=== PATIENT | male | born 1955 | race Caucasian/White ===

== ENCOUNTER → 2017-01-11 | Outpatient (CLI) | payer BC | LOC: HEART CORB 09:15 | DX: R94.31 Abnormal electrocardiogram [ECG] [EKG] (principal); I10 Essential (primary) hypertension | CPT/HCPCS: 93306 ==

== ENCOUNTER → 2020-10-13 | Outpatient (CLI) | payer BC ==
[~2020-10-13] MED LIST: CLONIDINE HCL0.2 MG PO; COREG6.25 MG PO; IBU800 MG PO; LOSARTAN-HCTZ1 EACH PO; NORVASC10 MG PO; VITAMIN C500 M4 PO; VITAMIN D31250 MCG PO
== END ==
LOC: KOH-I 09:03
DX: M25.572 Pain in left ankle and joints of left foot (principal); S82.402A Unspecified fracture of shaft of left fibula, initial encounter for closed fracture; S92.112A Displaced fracture of neck of left talus, initial encounter for closed fracture; S92.132A Displaced fracture of posterior process of left talus, initial encounter for closed fracture; L84 Corns and callosities; X58.XXXA Exposure to other specified factors, initial encounter
CPT/HCPCS: 73610

== ENCOUNTER → 2020-10-22 | Outpatient (CLI) | payer BC | LOC: KOH-I 08:00 → EMI 10-23 08:00 | DX: S92.112A Displaced fracture of neck of left talus, initial encounter for closed fracture (principal); S92.132A Displaced fracture of posterior process of left talus, initial encounter for closed fracture; S82.832A Other fracture of upper and lower end of left fibula, initial encounter for closed fracture; M19.072 Primary osteoarthritis, left ankle and foot; X58.XXXA Exposure to other specified factors, initial encounter | CPT/HCPCS: 73700 ==

== ENCOUNTER → 2020-11-06 | Day surgery (SDC) | payer BC ==
[~2020-11-06] VITALS: Ht 190.5 cm; Wt 108.9 kg
[2020-11-06 07:12] LABS: HEMOGLOBIN 14.7 gm/dl (14.0-17.5); RED BLOOD COUNT 4.38 M/UL (4.20-5.50); WHITE BLOOD COUNT 5.1 K/UL (4.5-11.0)
== END | disposition home or self-care (01) ==
LOC: OR 06:29
PROVIDERS: Podiatrist Foot & Ankle Surgery
DX: S92.112A Displaced fracture of neck of left talus, initial encounter for closed fracture (principal); S92.122A Displaced fracture of body of left talus, initial encounter for closed fracture; S92.145A Nondisplaced dome fracture of left talus, initial encounter for closed fracture; S92.192A Other fracture of left talus, initial encounter for closed fracture; S82.832A Other fracture of upper and lower end of left fibula, initial encounter for closed fracture; S92.002A Unspecified fracture of left calcaneus, initial encounter for closed fracture; I10 Essential (primary) hypertension; Z88.0 Allergy status to penicillin; Z79.899 Other long term (current) drug therapy; X58.XXXA Exposure to other specified factors, initial encounter
CPT/HCPCS: 73630; 76000; 80048; 85027; C1713; J1885; J2001; J2405; J2704; J2795; J3010; J3370; J7120; Q4133

== ENCOUNTER → 2020-11-23 | Outpatient (CLI) | payer BC | LOC: KOH-I 15:53 | DX: S82.832D Other fracture of upper and lower end of left fibula, subsequent encounter for closed fracture with routine healing (principal); S92.102D Unspecified fracture of left talus, subsequent encounter for fracture with routine healing; Z98.1 Arthrodesis status; X58.XXXD Exposure to other specified factors, subsequent encounter | CPT/HCPCS: 73610; 73630 ==

== ENCOUNTER → 2020-12-10 | Outpatient (CLI) | payer BC | LOC: KOH-I 16:18 | DX: S92.102D Unspecified fracture of left talus, subsequent encounter for fracture with routine healing (principal); X58.XXXD Exposure to other specified factors, subsequent encounter | CPT/HCPCS: 73630 ==

== ENCOUNTER → 2020-12-21 | Outpatient (CLI) | payer BC | LOC: KOH-I 10:42 | DX: S92.102D Unspecified fracture of left talus, subsequent encounter for fracture with routine healing (principal); Z98.890 Other specified postprocedural states; X58.XXXD Exposure to other specified factors, subsequent encounter | CPT/HCPCS: 73630 ==

== ENCOUNTER → 2021-01-18 | Outpatient (CLI) | payer BC | LOC: KOH-I 08:32 | DX: M25.475 Effusion, left foot (principal) | CPT/HCPCS: 73630 ==

== ENCOUNTER → 2021-01-26 | Outpatient (CLI) | payer BC | LOC: KOH-I 10:26 | DX: S92.102D Unspecified fracture of left talus, subsequent encounter for fracture with routine healing (principal); S92.112D Displaced fracture of neck of left talus, subsequent encounter for fracture with routine healing; X58.XXXD Exposure to other specified factors, subsequent encounter | CPT/HCPCS: 73700 ==

== ENCOUNTER → 2021-03-02 | Outpatient (CLI) | payer BC | LOC: KOH-I 09:25 | DX: S92.102A Unspecified fracture of left talus, initial encounter for closed fracture (principal); S92.252A Displaced fracture of navicular [scaphoid] of left foot, initial encounter for closed fracture | CPT/HCPCS: 73630 ==

== ENCOUNTER → 2022-01-25 | Outpatient (CLI) | payer BC | LOC: KOH-I 15:00 | DX: M79.672 Pain in left foot (principal); M85.872 Other specified disorders of bone density and structure, left ankle and foot | CPT/HCPCS: 73630 ==